=== PATIENT | female | born 2000 | race Hispanic/Latino ===

== ENCOUNTER 2023-05-04 19:25 | Emergency (ER) | payer BC ==
[~2023-05-04] VITALS: Ht 175.3 cm; Wt 83.5 kg
[2023-05-04 20:40] VITALS: BP 116/74; PULSE 80; RESP 18
== END 2023-05-04 22:20 | disposition left against medical advice (07) ==
LOC: EDH 19:25
DX: R42 Dizziness and giddiness (principal); J00 Acute nasopharyngitis [common cold]; Z53.21 Procedure and treatment not carried out due to patient leaving prior to being seen by health care provider